=== PATIENT | female | born 1955 | race Caucasian/White ===

== ENCOUNTER 2017-09-02 14:36 | Inpatient (IN) | payer OTHER ==
[~2017-09-02] VITALS: Ht 121.9 cm; Wt 5.0 kg
[~2017-09-02 14:36] MED LIST: ADVAIR 5001 DISK W/1 IH; CATAFLAM50 MG PO; FLECTOR30 EA TP; NORVASC 5MG TAB PO; ORPH100T PO; Prednisone PO; SINGULAIR10 MG PO; Singulair 10MG PO; Tessalon 200MG PO; ZETIA10 MG PO
[2017-09-11] MEDS ORDERED: AMLODIPINE BESYL5 MG PO (11:04)
[2017-09-11] MEDS ORDERED: LIPITOR20 MG PO (11:04)
[2017-09-11] MEDS ORDERED: MUCINEX600 MG PO (11:04)
== END 2017-09-11 12:12 | disposition home or self-care (01) | DRG 202 ==
LOC: ER 14:36 → SURG 09-03 19:41 → SEC-K 09-03 19:41 → SURG 09-04 00:14
PROC: 3E0F7GC Introduction of Other Therapeutic Substance into Respiratory Tract, Via Natural or Artificial Opening (ICD-10-PCS; principal; 2017-09-03)
DX: J45.41 Moderate persistent asthma with (acute) exacerbation (principal); J44.1 Chronic obstructive pulmonary disease with (acute) exacerbation; J44.0 Chronic obstructive pulmonary disease with (acute) lower respiratory infection; E86.0 Dehydration; I10 Essential (primary) hypertension; J09.X2 Influenza due to identified novel influenza A virus with other respiratory manifestations; J20.9 Acute bronchitis, unspecified

== ENCOUNTER 2018-06-30 01:59 | Emergency (ER) | payer OTHER ==
[~2018-06-30] VITALS: Ht 162.6 cm; Wt 98.0 kg
[~2018-06-30 01:59] MED LIST changes: +AMLODIPINE BESYL5 MG PO; +LIPITOR20 MG PO; +MUCINEX600 MG PO
[2018-06-30] MEDS ORDERED: PEPCID40 MG PO (06:47)
[2018-06-30] MEDS ORDERED: INTESTINEX680 M1 PO (06:47)
[2018-06-30] MEDS ORDERED: ZOFRAN ODT4 MG PO (06:47)
== END 2018-06-30 07:55 ==
LOC: ER 01:59
DX: K52.89 Other specified noninfective gastroenteritis and colitis (principal)

== ENCOUNTER 2018-07-15 10:43 | Inpatient (IN) | payer OTHER ==
[~2018-07-15] VITALS: Ht 162.6 cm; Wt 98.0 kg
[~2018-07-15 10:43] MED LIST changes: +INTESTINEX680 M1 PO; +PEPCID40 MG PO; +ZOFRAN ODT4 MG PO
--- NOTE | 2018-07-15 11:12 | NUR ---
PTE REFIERE ERINN TOS Y DESDE EL VIERNES PASADO.
--- NOTE | 2018-07-15 12:38 | NUR ---
PACIENTE ALERTA Y ORIENTADA EN GARDEN[place] NAM ESFERAS, ES ORIENTADA SOBRE ORDENES MEDICAS, REFIERE ENTENDER. SE COLECTAN MUESTRAS DE ANAI, SE ADMINISTRA SOLUMEDROL 125 MG IV, TERAPIAS RESPIRATORIAS Y ABG NOTIFICADOS A MS ELIJAH, PENDIENTE RADIOGRAFIA.
--- NOTE | 2018-07-15 23:02 | NUR ---
SE RECIBE PTE ALERTA Y ORIENTADA EN LAS 3 ESFERAS EN CAMA CON BARANDAS ELEVADAS POR SEGURIDAD. PTE RESPIRA SIN DIFICULTAD Y NO REFIERE SENTIR DOLOR. H/L, EN BRAZO IZQUIEROD, EL CUAL SE ENCUENTRA PETTY DE EDEMA Y ERITEMA. SE ORIENTA A PTE SOBRE CONTINUIDAD DE TX MEDICO. PTE REFIERE COMPRENDER. PENDIENTE CONSULTA CON . SE MANTIENE EN OBSERVACION POR CAMBIOS.
--- NOTE | 2018-07-16 07:04 | NUR ---
SE RECIBE DE TURNO ANTERIOR. PACIENTE FEMENINA. ALERTA Y ORIENTADA EN NAM ESFERAS. BUEN PATRON RESPIRATORIO. CABECERA A 30 GRADOS. BARANDAS ELEVADAS POR MCCLOUD SEGURIDAD. PIEL TIBIA AL TACTO. CANALIZACION PATENTE, PETTY DE EDEMA Y/O ENROJECIMIENTO CON HEPARIN LOCK COLOCADO. PACIENTE EN ESPERA DE SER EVALUADA POR DR CORTEZ.
[2018-07-21] MEDS ORDERED: SINGULAIR10 MG PO (17:58)
[2018-07-26] MEDS ORDERED: MEDROLPACK PO (09:22)
[2018-07-26] MEDS ORDERED: ALBUTEROL2.5 MG/3 M IH (09:26)
== END 2018-07-26 10:54 | disposition home or self-care (01) | DRG 194 ==
LOC: ER 10:43 → MEDJ 07-16 09:00
PROVIDERS: ADMIT Internal Medicine
PROC: 3E0F7GC Introduction of Other Therapeutic Substance into Respiratory Tract, Via Natural or Artificial Opening (ICD-10-PCS; principal; 2018-07-16)
DX: J09.X2 Influenza due to identified novel influenza A virus with other respiratory manifestations (principal); J45.41 Moderate persistent asthma with (acute) exacerbation; I10 Essential (primary) hypertension

== ENCOUNTER 2021-05-23 05:10 | Day surgery (SDC) | payer OTHER ==
[~2021-05-23 05:10] MED LIST changes: +ADVA IH; +ALBUTEROL2.5 MG/3 M IH; +COZAAR25 MG PO; +LYRICA50 MG PO; +MEDROLPACK PO; +PROTONIX40 MG PO; +VITAMIN C PO; +ZINC GLUCONATE100 MG PO
== END 2021-05-23 15:10 | disposition home or self-care (01) ==
LOC: CIR.AMB 05:10
PROVIDERS: ATTEND Specialist
DX: K80.10 Calculus of gallbladder with chronic cholecystitis without obstruction (principal); Z20.822 Contact with and (suspected) exposure to COVID-19

== ENCOUNTER 2021-11-18 11:38 | Outpatient (CLI) | payer OTHER ==
[~2021-11-18 11:38] MED LIST changes: +DICLOFENAC POTA50 MG PO
== END 2021-11-18 11:50 | disposition home or self-care (01) ==
LOC: TOM 11:38
PROVIDERS: ATTEND Psychiatry & Neurology Neurology
DX: G44.219 Episodic tension-type headache, not intractable (principal); M50.11 Cervical disc disorder with radiculopathy, high cervical region

== ENCOUNTER 2021-12-05 09:11 | Outpatient (CLI) | payer OTHER | END 2021-12-05 09:19 | disposition home or self-care (01) | LOC: MAMO-SONO 09:11 | PROVIDERS: ATTEND Obstetrics & Gynecology | DX: N64.4 Mastodynia (principal) ==

== ENCOUNTER 2023-04-06 12:05 | Outpatient (CLI) | payer OTHER | END 2023-04-06 12:07 | disposition home or self-care (01) | LOC: RAD 12:05 | PROVIDERS: ATTEND Physical Medicine & Rehabilitation | DX: M54.2 Cervicalgia (principal) ==

== ENCOUNTER 2023-04-08 09:45 | Outpatient (CLI) | payer OTHER | END 2023-04-08 09:50 | disposition home or self-care (01) | LOC: SONOGRAMA 09:45 | PROVIDERS: ATTEND Physical Medicine & Rehabilitation | DX: M79.641 Pain in right hand (principal) ==

== ENCOUNTER 2023-04-16 08:14 | Outpatient (CLI) | payer OTHER | END 2023-04-16 08:20 | disposition home or self-care (01) | LOC: MRI 08:14 | PROVIDERS: ATTEND Physical Medicine & Rehabilitation | DX: M54.12 Radiculopathy, cervical region (principal) | CPT/HCPCS: 72141 ==

== ENCOUNTER 2023-06-02 09:06 | Outpatient (CLI) | payer OTHER | END 2023-06-02 09:19 | disposition home or self-care (01) | LOC: MAMO-SONO 09:06 | PROVIDERS: ATTEND Obstetrics & Gynecology | DX: N64.4 Mastodynia (principal); Z12.31 Encounter for screening mammogram for malignant neoplasm of breast ==

== ENCOUNTER 2023-09-23 11:15 | Outpatient (CLI) | payer OTHER ==
[2023-09-23] MEDS ORDERED: HEMOSTATIC MATRIX 1 KIT KIT TOP ONE (12:31)
[2023-09-23] MEDS ORDERED: LIDOCAINE HCL 1%/Epi 20ML VIAL IJ ONE (12:31)
== END 2023-09-23 11:19 | disposition home or self-care (01) ==
LOC: RAD 11:15
PROVIDERS: ATTEND Internal Medicine Pulmonary Disease
DX: J20.9 Acute bronchitis, unspecified (principal); J44.9 Chronic obstructive pulmonary disease, unspecified

== ENCOUNTER 2024-04-19 12:00 | Outpatient (CLI) | payer OTHER | END 2024-04-19 12:16 | disposition home or self-care (01) | LOC: RAD 12:00 | PROVIDERS: ATTEND Internal Medicine Pulmonary Disease | DX: J44.9 Chronic obstructive pulmonary disease, unspecified (principal) ==

== ENCOUNTER 2024-05-17 07:38 | Emergency (ER) | payer OTHER ==
[~2024-05-17] VITALS: Ht 165.1 cm; Wt 93.0 kg
[2024-05-17] MEDS ORDERED: WIXELA 100-501 EACH (07:45)
[2024-05-17] MEDS ORDERED: SPIRIVA RESPIMAT4 G1 (07:45)
[2024-05-17] MEDS ORDERED: METHYLPREDNISOLONE SOD SUCC 125 MG VIAL IV STA (08:52)
[2024-05-17] MEDS ORDERED: HYDROCODONE/CHLORPHEN P-STIREX 5 ML ML PO STA (08:53)
[2024-05-17] MEDS ORDERED: LEVALBUTEROL HCL 1.25 MG/3 ML SOLUTION IH STA (08:53)
[2024-05-17] MEDS ORDERED: BUDESONIDE 0.5 MG/2 ML AMPUL.NEB IH STA (08:54)
[2024-05-17] MEDS ORDERED: MAGNESIUM SULFATE IN WATER 4 GM/100 ML PIGGYBACK IV STA (08:55)
[2024-05-17 09:14] LABS: HEMATOCRIT 37.2 % (36.0-45.00); HEMOGLOBIN 12.5 g/dL (12.0-15.00); MEAN CELL VOLUME 84.3 fL (80.00-100.00); MEAN CORPUSCULAR HEMOGLOBIN 28.4 pg (27.00-32.0); MEAN CORPUSCULAR HGB CONC 33.6 g/dl (32.0-36.0); PLATELET COUNT 229 K/uL (150-450); RED BLOOD COUNT 4.41 M/uL (4.00-6.00); RED CELL DISTRIBUTION WIDTH 14.8 % (11.5-14.5)
== END 2024-05-17 11:21 | disposition home or self-care (01) ==
LOC: ER 07:40
PROVIDERS: General Practice
DX: J45.901 Unspecified asthma with (acute) exacerbation (principal); I10 Essential (primary) hypertension; Z91.041 Radiographic dye allergy status; Z20.822 Contact with and (suspected) exposure to COVID-19
CPT/HCPCS: 36415; 94640; 96365; 99284; J3490

== ENCOUNTER 2024-12-14 15:50 | Emergency (ER) | payer OTHER ==
[~2024-12-14] VITALS: Ht 165.1 cm; Wt 98.4 kg
[~2024-12-14 15:50] MED LIST changes: +SPIRIVA RESPIMAT4 G1; +WIXELA 100-501 EACH
[2024-12-14 16:07] VITALS: BP 151/70; O2SAT 99
[2024-12-14] MEDS ORDERED: PEPCID AC20 MG (16:08)
[2024-12-14] MEDS ORDERED: FAMOTIDINE/PF 20 MG in 0.9 % SODIUM CHLORIDE 8 ML IV PUSH STA (16:29)
[2024-12-14] MEDS ORDERED: KETOROLAC TROMETHAMINE 30 MG VIAL IV ONE (16:30)
[2024-12-14] MEDS ORDERED: KETOROLAC TROMETHAMINE 30 MG VIAL ONE (17:22)
[2024-12-14] MEDS ORDERED: FAMOTIDINE/PF 20 MG/2 ML VIAL ONE (17:22)
[2024-12-14 18:10] LABS: BASO % 0.9 % (0.1-1.2); EOS # 0.12 (0.04-0.54); EOS % 1.3 % (0.7-7.0); HEMATOCRIT 37.3 % (34.1-44.9); HEMOGLOBIN 12.4 g/dL (11.2-15.7); LYMPH # 1.88 (1.18-3.74); LYMPH % 20.3 % (19.3-53.1); MEAN CORPUSCULAR HEMOGLOBIN 27.8 pg (25.6-32.2); MONO # 1.03 (0.24-0.82); MONO % 11.1 % (4.7-12.5); NEUT # 6.13 (1.56-6.13); PLATELET COUNT 237 K/uL (163-369); RED BLOOD COUNT 4.46 M/uL (3.93-5.22); RED CELL DISTRIBUTION WIDTH 13.7 % (11.6-14.4)
[2024-12-14 18:32] LABS: ALBUMIN 3.7 gm/dL (3.4-5.0); BILIRUBIN TOTAL 0.5 mg/dL (0.3-1.2); CALCIUM 9.1 mg/dL (8.5-10.1); CREATININE SERUM 0.74 mg/dL (0.55-1.02); GFR 77.59; GLOBULINA 3.8 G/DL (2.4-3.5); POTASSIUM 3.99 mEq/L (3.5-5.1); TOTAL PROTEIN 7.5 gm/dL (6.4-8.2)
[2024-12-14 18:40] LABS: PH,URINE 7.5 (5.0-8.0); URINE APPEARANCE Clear; URINE BILIRRUBIN Negative (NEGATIVE); URINE BLOOD Negative; URINE COLOR Yellow; URINE GLUCOSE Negative (NEGATIVE); URINE KETONE Negative (NEGATIVE); URINE LEUKOCYTE Negative; URINE NITRATE Negative; URINE PROTEIN Negative (NEGATIVE); URINE UROBILINOGEN 0.2 E.U./dl
[2024-12-14 18:43] LABS: URINE BACTERIA 23.2 uL (0.0-1933)
[2024-12-14 18:50] LABS: URINE EPITHELIAL CELLS 0.9 uL (0.0-38.8); URINE RBC 0.5 uL (0.0-20.8); URINE WBC 1.2 uL (0.0-23.2)
[2024-12-14] MEDS ORDERED: PEPCID AC20 MG PO (19:27)
== END 2024-12-14 20:48 | disposition home or self-care (01) ==
LOC: ER 16:02
PROVIDERS: General Practice
DX: R10.31 Right lower quadrant pain (principal); I10 Essential (primary) hypertension; Z91.041 Radiographic dye allergy status

== ENCOUNTER 2025-01-20 14:58 | Emergency (ER) | payer OTHER ==
[~2025-01-20] VITALS: Ht 162.6 cm; Wt 98.0 kg
[~2025-01-20 14:58] MED LIST changes: +PEPCID AC20 MG; +PEPCID AC20 MG PO
[2025-01-20] MEDS ORDERED: IBUPROFEN600 MG PO (22:41)
== END 2025-01-20 22:55 | disposition home or self-care (01) ==
LOC: ER 14:58
DX: S00.93XA Contusion of unspecified part of head, initial encounter (principal); S40.012A Contusion of left shoulder, initial encounter; S80.02XA Contusion of left knee, initial encounter; W18.39XA Other fall on same level, initial encounter; Y93.89 Activity, other specified; Y92.89 Other specified places as the place of occurrence of the external cause; Y99.9 Unspecified external cause status; E11.9 Type 2 diabetes mellitus without complications; Z79.84 Long term (current) use of oral hypoglycemic drugs; Z87.09 Personal history of other diseases of the respiratory system; Z91.041 Radiographic dye allergy status

== ENCOUNTER 2025-02-16 09:11 | Outpatient (CLI) | payer OTHER ==
[~2025-02-16 09:11] MED LIST changes: +IBUPROFEN600 MG PO
== END 2025-02-16 09:22 | disposition home or self-care (01) ==
LOC: SONOGRAMA 09:11
PROVIDERS: ATTEND Physical Medicine & Rehabilitation
DX: M25.512 Pain in left shoulder (principal)